=== PATIENT | female | born 1990 ===

== ENCOUNTER 2019-04-07 12:15 | Emergency (ER) | payer MEDICAID ==
[2019-04-07 12:20] VITALS: BP 122/101
== END 2019-04-07 14:00 | disposition left against medical advice (07) ==
LOC: ED 12:15
DX: O46.91 Antepartum hemorrhage, unspecified, first trimester (principal); Z3A.11 11 weeks gestation of pregnancy; Z53.21 Procedure and treatment not carried out due to patient leaving prior to being seen by health care provider

== ENCOUNTER 2020-01-24 10:07 | Emergency (ER) | payer MEDICAID ==
[2020-01-24] MEDS ORDERED: KETOROLAC 30 MG/1 ML INJ IM ONE (10:53)
--- NOTE | 2020-01-24 12:25 | XRay Report ---
Cervical spine-5 views Lumbar spine-3 views INDICATION: Fall with generalized neck and low back pain. COMPARISON: None. IMPRESSION: Normal cervical and lumbar spinal alignment. No significant discogenic DJD or facet art hropathy. No acute osseous or soft tissue abnormality. Signer Name: Osmel Plummer MD Signed: 01/24/2020 12:20 PM Workstation Name: [id number]
--- NOTE | 2020-01-24 12:26 | Emergency Department Report ---
ED Fall HPI - General Chief Complaint: Fall Stated Complaint: FALL/BACK/LFT ANKLE PAIN Time Seen by Provider: 01/24/20 10:52 Source: patient, EMS Mode of arrival: Stretcher - History of Present Illness Initial Comments: This is a 37-year-old female that was brought in by EMS. Medics state that the patient had a ground-level fall secondary to an old slip. She arrived on backboard. She complains of neck and lower back pain. She has some discomfort in the left lower extremity as well being pain. She denied any neurological symptoms. She does not report any prior back or neck problems. MD Complaint: fall -: Sudden Fall From: standing When Fall Occurred: [address] Fall Occurred: other Loss of Consciousness: none Prolonged Down Time?: no Symptoms Prior to Fall: none Location: neck, back Quality: aching Context: tripped/slipped Associated Symptoms: denies - Related Data Previous Rx's Medication Instructions Recorded Last Taken Type Naproxen [Naprosyn] 500 mg PO BID PRN #14 tablet 01/24/20 Unknown Rx Allergies Allergy/AdvReac Type Severity Reaction Status Date / Time meperidine [From Demerol] Allergy Hives Verified 01/24/20 10:50 ED Review of Systems ROS: Stated complaint: FALL/BACK/LFT ANKLE PAIN Other details as noted in HPI Comment: All other systems reviewed and negative ED Past Medical Hx - Past Medical History Previous Medical History?: No - Surgical History Past Surgical History?: No - Social History Smoking Status: Current Every Day Smoker - Medications Home Medications: Home Medications Medication Instructions Recorded Confirmed Last Taken Type Naproxen [Naprosyn] 500 mg PO BID PRN #14 tablet 01/24/20 Unknown Rx ED Physical Exam - General Limitations: Physical Limitation General appearance: alert, in no apparent distress - Head Head exam: Present: atraumatic, normocephalic - Eye Eye exam: Present: normal appearance. Absent: scleral icterus - ENT ENT exam: Present: mucous membranes moist - Neck Neck exam: Present: normal inspection, tenderness (Left sided neck with sitting closer to trapezius and paravertebral. No vertebral tenderness). Absent: meningismus - Respiratory Respiratory exam: Present: normal lung sounds bilaterally. Absent: respiratory distress - Cardiovascular Cardiovascular Exam: Present: regular rate, normal rhythm. Absent: systolic murmur, diastolic murmur, rubs, gallop - GI/Abdominal GI/Abdominal exam: Present: soft, normal bowel sounds. Absent: distended, tenderness, guarding, rebound - Extremities Exam Extremities exam: Present: normal inspection, full ROM. Absent: tenderness, calf tenderness - Back Exam Back exam: Present: normal inspection - Neurological Exam Neurological exam: Present: alert, oriented X3, CN II-XII intact. Absent: motor sensory deficit - Psychiatric Psychiatric exam: Present: normal affect, normal mood - Skin Skin exam: Present: warm, dry, intact, normal color. Absent: rash ED Course Vital Signs 01/24/20 01/24/20 10:47 11:02 Temperature 97.6 F Pulse Rate 92 H Respiratory 16 18 Rate Blood Pressure 115/98 O2 Sat by Pulse 99 Oximetry - Reevaluation(s) Reevaluation #1: Analgesia. No supplemental problems on secondary survey. No vertebral tenderness. Appropriate for outpatient referral and discharge. 01/24/20 12:23 Reevaluation #2: No supplemental problems on reexamination. 01/24/20 12:28 Critical care attestation.: If time is entered above; I have spent that time in minutes in the direct care of this critically ill patient, excluding procedure time. ED Disposition Clinical Impression: Cervical strain, acute Qualifiers: Encounter type: initial encounter Qualified Code(s): S16.1XXA - Strain of muscle, fascia and tendon at neck level, initial encounter Lumbar spine strain Qualifiers: Encounter type: initial encounter Qualified Code(s): S39.012A - Strain of muscle, fascia and tendon of lower back, initial encounter Disposition: TO HOME OR SELFCARE Is pt being admited?: No Does the pt Need Aspirin: No Condition: Stable Additional Instructions: Follow-up with orthopedic referral or primary care physician. Return any acute change or problem. Prescriptions: Naproxen [Naprosyn] 500 mg PO BID PRN #14 tablet PRN Reason: pain Referrals: TASNEEM GORDON MD [Primary Care Provider] - 3-5 Days EUGENIO ENGLE MD [Staff Physician] - 2-3 Days Time of Disposition: 12:24
[2020-01-24 12:59] VITALS: BP 127/92
== END 2020-01-24 12:59 | disposition home or self-care (01) ==
LOC: ED 10:07
DX: S16.1XXA Strain of muscle, fascia and tendon at neck level, initial encounter (principal); S39.012A Strain of muscle, fascia and tendon of lower back, initial encounter; F17.200 Nicotine dependence, unspecified, uncomplicated; Z79.899 Other long term (current) drug therapy; Z88.8 Allergy status to other drugs, medicaments and biological substances; W17.89XA Other fall from one level to another, initial encounter; Y93.89 Activity, other specified; Y92.89 Other specified places as the place of occurrence of the external cause; Y99.8 Other external cause status
CPT/HCPCS: 72040; 72100; 96372; 99283; J1885